=== PATIENT | female | born 1990 | race African-American/Black ===

== ENCOUNTER 2017-08-22 17:23 | Emergency (ER) | payer MEDICAID ==
[~2017-08-22] VITALS: Ht 162.6 cm; Wt 81.7 kg
[2017-08-22] MEDS ORDERED: DIPHENHYDRAMINE 50 MG/ML, 1ML IVPush ONE (18:00)
[2017-08-22] MEDS ORDERED: SODIUM CHLORIDE 0.9% 1,000ML IVBOLUS ONE (18:00)
[2017-08-22] MEDS ORDERED: SODIUM CHLORIDE FLUSH 10ML SYR IVF ONE (18:00)
[2017-08-22] MEDS ORDERED: METOCLOPRAMIDE 5 MG/ML, 2ML IVPush ONE (18:00)
[2017-08-22] MEDS ORDERED: KETOROLAC 30 MG/1 ML IVPush ONE (18:00)
[2017-08-22] MEDS ORDERED: KETOROLAC 30 MG/1 ML ONE (18:36)
[2017-08-22] MEDS ORDERED: DIPHENHYDRAMINE 50 MG/ML, 1ML ONE (18:36)
[2017-08-22] MEDS ORDERED: METOCLOPRAMIDE 5 MG/ML, 2ML ONE (18:36)
[2017-08-22 20:10] VITALS: BP 122/83
== END 2017-08-22 20:12 | disposition home or self-care (01) ==
LOC: ED 19:55
DX: J01.00 Acute maxillary sinusitis, unspecified (principal); J01.10 Acute frontal sinusitis, unspecified
CPT/HCPCS: 96374; 96375; 99284; J1200; J1885; J2765; J7030

== ENCOUNTER 2017-10-25 09:09 | Emergency (ER) | payer MEDICAID ==
[~2017-10-25] VITALS: Ht 162.6 cm; Wt 79.7 kg
[2017-10-25] MEDS ORDERED: DIAZEPAM 5 MG TABLET PO ONE (10:00)
[2017-10-25 10:09] LABS: BASOPHILS # (AUTO) 0.09 x10^3/uL (0-0.1); BASOPHILS % (AUTO) 1 % (0-1); EOSINOPHILS # (AUTO) 0.03 x10^3/uL (0-0.4); EOSINOPHILS % (AUTO) 0 % (1-7); LYMPHOCYTES # (AUTO) 2.22 x10^3/uL (1-3.4); LYMPHOCYTES % (AUTO) 28 % (22-44); MD NO; MEAN CORPUSCULAR HEMOGLOBIN 29.2 pg (27.0-34.8); MEAN CORPUSCULAR HGB CONC 33.7 g/dL (32.4-35.8); MEAN CORPUSCULAR VOLUME 86.6 fL (80-100); MEAN PLATELET VOLUME 7.9 fL (7.4-10.4); MONOCYTES # (AUTO) 0.44 x10^3/uL (0.2-0.8); MONOCYTES % (AUTO) 6 % (2-9); NEUTROPHILS # (AUTO) 5.19 x10^3/uL (1.8-6.8); NEUTROPHILS % (AUTO) 65 % (42-75); PLATELET COUNT 229 x10^3/uL (130-400); RED BLOOD COUNT 5.16 x10^6/uL (3.82-5.3); RED CELL DISTRIBUTION WIDTH 13.3 % (9.6-15.2)
[2017-10-25 10:13] LABS: MICROSCOPIC INDICATED
[2017-10-25 10:20] LABS: ALBUMIN 3.6 g/dL (3.4-5.0); ANION GAP 6 mmol/L (5-15); CALCIUM 8.7 mg/dL (8.5-10.1); CHLORIDE 107 mmol/L (98-107); CREATININE 0.72 mg/dL (0.55-1.02)
[2017-10-25 10:26] LABS: CULTURE INDICATED? NO
[2017-10-25 11:09] VITALS: BP 129/82
== END 2017-10-25 11:59 | disposition home or self-care (01) ==
LOC: ED 11:00
DX: O26.891 Other specified pregnancy related conditions, first trimester (principal); O00.90 Unspecified ectopic pregnancy without intrauterine pregnancy; Z3A.01 Less than 8 weeks gestation of pregnancy; Z32.01 Encounter for pregnancy test, result positive
CPT/HCPCS: 36415; 76801; 80048; 81001; 82040; 84702; 85025; 99285

== ENCOUNTER 2020-06-04 10:21 | Emergency (ER) | payer MEDICAID ==
[~2020-06-04] VITALS: Ht 165.1 cm; Wt 95.8 kg
--- NOTE | 2020-06-04 10:42 | NUR ---
ASSUMED CARE OF PT. FAMILY MEMBER AT BEDSIDE. SHE IS COMPLAINING OF RIGHT FOOT PAIN AFTER DROPPING A BOX ON IT ON 06/02/20. THE PAIN IS BETTER AND SHE NOW NEEDS CLEARANCE TO RETURN TO WORK. PROVIDER HAS BEEN TO BEDSIDE. CALL LIGHT WITHIN REACH AND CYCLING VITALS.
[2020-06-04 11:32] VITALS: BP 144/95
--- NOTE | 2020-06-04 11:37 | NUR ---
Patient/Caregiver given discharge instructions and they have confirmed that they understand the instructions. Patient ambulatory with steady gait.
== END 2020-06-04 11:38 | disposition home or self-care (01) ==
LOC: ED 11:16
DX: S90.31XA Contusion of right foot, initial encounter (principal); M79.671 Pain in right foot; X58.XXXA Exposure to other specified factors, initial encounter; Y93.89 Activity, other specified; Y92.69 Other specified industrial and construction area as the place of occurrence of the external cause; Y99.8 Other external cause status
CPT/HCPCS: 99283

== ENCOUNTER 2020-11-04 18:35 | Inpatient (IN) | payer MEDICAID, OTHER ==
[~2020-11-04] VITALS: Ht 165.1 cm; Wt 107.1 kg
--- NOTE | 2020-11-04 19:49 | NUR ---
ERP at bedside
[2020-11-04] MEDS ORDERED: MORPHINE SULFATE 4 MG/ML, 1ML ONE (20:16)
[2020-11-04] MEDS ORDERED: ONDANSETRON 2MG/ML, 2ML IVPush PRN ×2 (20:30→21:30)
[2020-11-04] MEDS ORDERED: D5%-0.45% NACL 1,000 ML IV ONE (20:30)
[2020-11-04] MEDS ORDERED: MORPHINE SULFATE 4 MG/ML, 1ML IVPush PRN (20:30)
[2020-11-04] MEDS ORDERED: SODIUM CHLORIDE FLUSH 10ML SYR IVF PRN (20:30)
--- NOTE | 2020-11-04 20:30 | NUR ---
20 G IV TO THE LEFT AC STARTED, PAIN MEDS GIVEN. IVF STARTED WELL.
[2020-11-04] MEDS ORDERED: FENTANYL PF 100 MCG/2ML ONE ×2 (20:43→22:21)
[2020-11-04] MEDS ORDERED: MIDAZOLAM 1 MG/ML, 2ML ONE (20:43)
--- NOTE | 2020-11-04 20:45 | NUR ---
PT RESTING COMFORTABLY ON GURHOSSEIN COVMANUEL RAPID TEST PERFORMED AND SENT TO LAB
[2020-11-04] MEDS ORDERED: BUPIVACAINE/PF 0.25% ONE (20:55)
--- NOTE | 2020-11-04 20:55 | NUR ---
OR CALLED FOR REPORT, PT REMOVING CLOTHING AND PLACED IN PATIENT BELONGING BAG. DENIES ANY NEEDS AT THIS TIME.
[2020-11-04] MEDS ORDERED: DIAZEPAM 5 MG/ML, 2ML IVPush PRN (21:30)
[2020-11-04] MEDS ORDERED: HYDROmorphone 1 MG/ML, 1ML INJ IVPush PRN (21:30)
[2020-11-04] MEDS ORDERED: ACETAMINOPHEN 325 MG TABLET PO PRN (21:30)
[2020-11-04] MEDS ORDERED: MEPERIDINE/PF 25MG/0.5ML IVPush PRN (21:30)
[2020-11-04] MEDS ORDERED: OXYcodone 5 MG/5 ML ORAL.SOL UDC PO PRN (21:30)
[2020-11-04] MEDS ORDERED: DIPHENHYDRAMINE 50 MG/ML, 1ML IVPush PRN (21:30)
[2020-11-04] MEDS ORDERED: PROMETHAZINE 25 MG/ML, 1ML IVPush PRN (21:30)
[2020-11-04] MEDS ORDERED: SUCCINYLCHOLINE 20 MG/ML, 10ML ONE (21:53)
[2020-11-04] MEDS ORDERED: LIDOCAINE-MPF 2% ,5ML ONE (21:53)
[2020-11-04] MEDS ORDERED: CEFAZOLIN 1,000 MG ONE ×2 (21:53)
[2020-11-04] MEDS ORDERED: PROPOFOL 10 MG/ML, 20ML ONE (21:53)
[2020-11-04] MEDS ORDERED: ONDANSETRON 2MG/ML, 2ML ONE (21:53)
[2020-11-04] MEDS ORDERED: ROCURONIUM 10MG/ML,5ML ONE (21:53)
[2020-11-04] MEDS ORDERED: KETOROLAC 30 MG/1 ML ONE (21:57)
[2020-11-04] MEDS ORDERED: BUPIVACAINE/PF 0.25% INFIL ONE (21:58)
[2020-11-04] MEDS ORDERED: SUGAMMADEX 200 MG/2 ML IVPush ONE (22:09)
[2020-11-04] MEDS ORDERED: OXYcodone 5 MG/5 ML ORAL.SOL UDC ONE (22:21)
[2020-11-04] MEDS: FENTANYL PF 100 MCG/2ML IV PRN ×2 (22:35→22:45)
[2020-11-04] MEDS ORDERED: OXYcodone/APAP 5/325MG TABLET PO PRN (23:30)
[2020-11-04] MEDS ORDERED: ONDANSETRON 2MG/ML, 2ML IV PRN (23:30)
[2020-11-04] MEDS ORDERED: LACTATED RINGERS 1,000 ML IV SCH (23:30)
[2020-11-04] MEDS: morphine SULFATE 10 MG/ML, 1ML IV PRN (23:44)
[2020-11-05] MEDS: morphine SULFATE 10 MG/ML, 1ML IV PRN ×3 (00:16→05:22)
[2020-11-05 00:39] VITALS: BP 134/89
[2020-11-05 04:15] VITALS: BP 113/68
[2020-11-05] MEDS ORDERED: OXYC1TAB14 PO (07:04)
[2020-11-05 08:10] VITALS: BP 149/83
== END 2020-11-05 10:13 | disposition home or self-care (01) | DRG 355 ==
LOC: ED 19:57 → EDIP 20:22 → 4NE 23:20 → DCLOUNGE 11-05 10:05
PROVIDERS: ADMIT Surgery; ATTEND Surgery
PROC: 0WQF0ZZ Repair Abdominal Wall, Open Approach (ICD-10-PCS; principal; 2020-11-04 21:30)
DX: K42.0 Umbilical hernia with obstruction, without gangrene (principal); Z20.822 Contact with and (suspected) exposure to COVID-19
CPT/HCPCS: 36415; 96374; 99285; J3490; 76705; 84703; 87635; G0378; J0690; J1885; J2250; J2405; J2704; J3010; J0330; J2270; J7120